=== PATIENT | male | born 1955 | race Caucasian/White ===

== ENCOUNTER 2022-11-10 08:01 | Outpatient (CLI) | payer MEDICARE, BC, SELFPAY | END 2022-11-10 08:02 | disposition home or self-care (01) | LOC: OP CLINIC 08:05 | PROVIDERS: Visit Provider Surgery | DX: Z86.010 Personal history of colon polyps (principal); K63.5 Polyp of colon; K64.4 Residual hemorrhoidal skin tags; K57.30 Diverticulosis of large intestine without perforation or abscess without bleeding; Z98.0 Intestinal bypass and anastomosis status | CPT/HCPCS: 45385; 88305; J2250; J3010 ==